=== PATIENT | female | born 1975 | race Asian ===

== ENCOUNTER 2017-04-30 19:26 | Emergency (ER) | payer BC ==
[~2017-04-30] VITALS: Ht 162.6 cm; Wt 61.2 kg
[2017-04-30] MEDS ORDERED: ONDANSETRON PF 4 MG/2 ML VIAL. ONE (19:56)
[2017-04-30] MEDS ORDERED: IV NORMAL SALINE 1000ML BAG 1,000 ML IV SCH (20:06)
[2017-04-30] MEDS ORDERED: fentaNYL PF VIAL 100 MCG/2 ML VIAL ONE (20:09)
[2017-04-30] MEDS ORDERED: ONDANSETRON PF 4 MG/2 ML VIAL. IV ONE ×2 (20:15)
[2017-04-30] MEDS ORDERED: fentaNYL PF VIAL 100 MCG/2 ML VIAL IV PRN (20:15)
[2017-04-30 20:18] LABS: BILIRUBIN,URINE NEGATIVE (NEG); GLUCOSE,URINE NEGATIVE (NEG); NITRITE,URINE NEGATIVE (NEG); PROTEIN,URINE NEGATIVE (NEG-TRACE); UROBILINOGEN,URINE 0.2 mg/dL (0.2 mg/dL)
[2017-04-30 20:21] LABS: BASO % 1 % (0-3); EOS % 1 % (0-3); HEMATOCRIT 38.3 % (36.0-47.0); HEMOGLOBIN 13.3 g/dL (12.0-15.5); LYMPH % 35 % (24-48); MEAN CORPUSCULAR HEMOGLOBIN 31 pg (25-35); MEAN CORPUSCULAR HGB CONC 35 g/dL (31-37); MEAN CORPUSCULAR VOLUME 89 fL (79-100); MONO % 7 % (0-9); NEUT % 56 % (31-73); PLATELET COUNT 221 x10^3/uL (140-400); RED BLOOD COUNT 4.28 x10^6/uL (3.50-5.40); WHITE BLOOD COUNT 5.8 x10^3/uL (4.0-11.0)
[2017-04-30 20:24] LABS: BACTERIA,URINE MODERATE /HPF (0-FEW); RBC,URINE TNTC /HPF (0-2); SQUAMOUS EPITHELIAL CELL,UR MOD /LPF; WBC,URINE OCC /HPF (0-4)
[2017-04-30 20:37] LABS: CALCIUM 8.8 mg/dL (8.5-10.1); CREATININE 0.6 mg/dL (0.6-1.0); GFR 110.2; POTASSIUM 4.2 mmol/L (3.5-5.1)
[2017-04-30 20:45] LABS: ALBUMIN 3.8 g/dL (3.4-5.0); ALBUMIN/GLOBULIN RATIO 0.9 (1.0-1.7); TOTAL BILIRUBIN 0.9 mg/dL (0.2-1.0); TOTAL PROTEIN 7.9 g/dL (6.4-8.2)
[2017-04-30] MEDS ORDERED: fentaNYL PF VIAL 100 MCG/2 ML VIAL IV ONE (20:45)
--- NOTE | 2017-04-30 20:46 | RAD ---
CT abdomen and pelvis without contrast Indication:rt flank pain. . Technique: Contiguous axial images are obtained through the abdomen and pelvis. No intravenous or oral contrast per request. Multiplanar reformatted images obtained. Exposure: One or more of the following individualized dose reduction techniques were utilized for this examination: 1. Automated exposure control 2. Adjustment of the mA and/or kV according to patient size 3. Use of iterative reconstruction technique. Comparison:None are available Findings: Urinary tracts: 4 mm calcification at the distal right ureter, just above the ureterovesical junction. There is mild right hydronephrosis compatible with mild obstruction. No evidence of intrarenal calculus. No left hydronephrosis. Evaluation of solid viscera, bowel and vasculature is compromised by the noncontrast technique. Lower thorax: Lung bases are clear. Pneumoperitoneum:No gross pneumoperitoneum. Liver: Unremarkable Spleen: Borderline enlarged at 12.5 cm. Pancreas: Difficult to distinguish from adjacent unopacified bowel but no obvious abnormality. Kidneys: No focal lesion. Adrenals:No evidence of mass. Gallbladder: No calcified stone Aorta: Abdominal aorta is nonaneurysmal Lymph nodes: No significant enlargement GI tract: No bowel obstruction. No paracolonic inflammation. Appendix:Visualized, and appears within normal limits. Ascites: No gross ascites. Urinary bladder: Not distended. No evidence of pelvic mass. Bones: No destructive process. IMPRESSION: 1. Mildly obstructive 4 mm calculus at the distal right ureter. 2. Borderline splenomegaly. Electronically signed by: Nish Zavala MD (04/30/2017 8:43 PM) [id number]
[2017-04-30 21:35] VITALS: BP 113/69
[2017-04-30] MEDS ORDERED: HYDR-971 PO (21:42)
[2017-04-30] MEDS ORDERED: TAMS0.4C97 PO (21:42)
--- NOTE | 2017-04-30 21:42 | PHYS DOC ---
Past Medical History Past Medical History: Kidney Stone Past Surgical History: No Surgical History Alcohol Use: None Drug Use: None Adult General Chief Complaint Chief Complaint: ABDOMINAL PAIN HPI HPI Patient is a 41 year old female who presents with one to one and a half hours of severe pain in the right flank/right lower quadrant. She denies fever or chills. She's had a couple of episodes of vomiting. Denies diarrhea. She denies , she has not been sexually active. She has had pain similar to this once before when she passed a kidney stone. She denies previous abdominal surgery. Patient is allergic to sulfa. She has no chronic medical problems. Review of Systems Review of Systems Constitutional: Denies fever or chills [] GI: As in history of present illness : Denies dysuria or hematuria [] Current Medications Current Medications Current Medications Medications (Trade) Dose Ordered Sig/Avinash Start Time Stop Time Status Last Admin Dose Admin Fentanyl Citrate (Fentanyl 2ml Vial) 100 mcg 1X ONCE 04/30/17 20:45 04/30/17 20:46 DC 04/30/17 20:14 100 MCG Ketorolac Tromethamine (Toradol) 30 mg 1X ONCE 04/30/17 21:45 04/30/17 21:46 DC 04/30/17 21:55 30 MG Ondansetron HCl (Zofran) 4 mg 1X ONCE 04/30/17 20:15 04/30/17 20:16 DC Sodium Chloride 1,000 ml @ 1,000 mls/hr Q1H 04/30/17 20:06 04/30/17 21:05 DC 04/30/17 20:17 1,000 MLS/HR Tamsulosin HCl (Flomax) 0.4 mg 1X ONCE 04/30/17 21:45 04/30/17 21:46 DC 04/30/17 21:54 0.4 MG Allergies Allergies Allergies Coded Allergies Type Severity Reaction Last Updated Verified Sulfa (Sulfonamide Antibiotics) Allergy Intermediate 04/30/17 Yes Physical Exam Physical Exam Constitutional: Well developed, well nourished, writhing in pain, appears colicky, alert and appropriate HENT: Normocephalic, atraumatic, bilateral external ears normal, nose normal. [ ] Eyes: conjunctiva normal, no discharge. [] Neck: Normal range of motion, no stridor. [] Abdomen: Bowel sounds normal, soft, no tenderness, no masses, no pulsatile masses. Patient has pain in the right mid abdomen but that area is not particularly tender, no rebound or guarding. Skin: Warm, dry, no erythema, no rash. [] Extremities: No tenderness, no cyanosis, no clubbing, ROM intact, no edema. [] Neurologic: Alert and oriented X 3, normal motor function, normal sensory function, no focal deficits noted. [] Current Patient Data Vital Signs Vital Signs Date Time Temp Pulse Resp B/P (MAP) Pulse Ox O2 Delivery O2 Flow Rate FiO2 04/30/17 21:35 68 13 113/69 (84) 100 Room Air 04/30/17 19:53 98.4 98.4 Lab Values Laboratory Tests Test 04/30/17 19:16 04/30/17 19:59 04/30/17 20:00 POC Urine HCG, Qualitative Hcg negative (Negative) Urine Collection Type Unknown Urine Color Yellow Urine Clarity Cloudy Urine pH 6.0 Urine Specific Pep 1.025 Urine Protein Negative mg/dL (NEG-TRACE) Urine Glucose (UA) Negative mg/dL (NEG) Urine Ketones (Stick) Negative mg/dL (NEG) Urine Blood Large (NEG) Urine Nitrite Negative (NEG) Urine Bilirubin Negative (NEG) Urine Urobilinogen Dipstick 0.2 mg/dL (0.2 mg/dL) Urine Leukocyte Esterase Trace (NEG) Urine RBC Tntc /HPF (0-2) Urine WBC Occ /HPF (0-4) Urine Squamous Epithelial Cells Mod /LPF Urine Bacteria Moderate /HPF (0-FEW) Urine Mucus Mod /LPF White Blood Count 5.8 x10^3/uL (4.0-11.0) Red Blood Count 4.28 x10^6/uL (3.50-5.40) Hemoglobin 13.3 g/dL (12.0-15.5) Hematocrit 38.3 % (36.0-47.0) Mean Corpuscular Volume 89 fL (79-100) Mean Corpuscular Hemoglobin 31 pg (25-35) Mean Corpuscular Hemoglobin Concent 35 g/dL (31-37) Red Cell Distribution Width 13.0 % (11.5-14.5) Platelet Count 221 x10^3/uL (140-400) Neutrophils (%) (Auto) 56 % (31-73) Lymphocytes (%) (Auto) 35 % (24-48) Monocytes (%) (Auto) 7 % (0-9) Eosinophils (%) (Auto) 1 % (0-3) Basophils (%) (Auto) 1 % (0-3) Neutrophils # (Auto) 3.2 x10^3uL (1.8-7.7) Lymphocytes # (Auto) 2.0 x10^3/uL (1.0-4.8) Monocytes # (Auto) 0.4 x10^3/uL (0.0-1.1) Eosinophils # (Auto) 0.1 x10^3/uL (0.0-0.7) Basophils # (Auto) 0.0 x10^3/uL (0.0-0.2) Sodium Level 139 mmol/L (136-145) Potassium Level 4.2 mmol/L (3.5-5.1) Chloride Level 104 mmol/L (98-107) Carbon Dioxide Level 24 mmol/L (21-32) Anion Gap 11 (6-14) Blood Urea Nitrogen 16 mg/dL (7-20) Creatinine 0.6 mg/dL (0.6-1.0) Estimated GFR (Cockcroft-Gault) 110.2 BUN/Creatinine Ratio 27 (6-20) H Glucose Level 130 mg/dL (70-99) H Calcium Level 8.8 mg/dL (8.5-10.1) Total Bilirubin 0.9 mg/dL (0.2-1.0) Aspartate Amino Transferase (AST) 29 U/L (15-37) Alanine Aminotransferase (ALT) 26 U/L (14-59) Alkaline Phosphatase 81 U/L (46-116) Total Protein 7.9 g/dL (6.4-8.2) Albumin 3.8 g/dL (3.4-5.0) Albumin/Globulin Ratio 0.9 (1.0-1.7) L Lipase 128 U/L (73-393) Laboratory Tests 04/30/17 20:00 Laboratory Tests 04/30/17 20:00 EKG EKG [] Radiology/Procedures Radiology/Procedures CT scan of the abdomen and pelvis read by the radiologist. Mildly obstructive 4 mm calculus at the distal right ureter.[] Course & Med Decision Making Course & Med Decision Making Pertinent Labs and Imaging studies reviewed. (See chart for details) 41-year-old female presents with 1-1-1/2 hours of severe colicky pain in the distribution suggestive of a right-sided ureteral stone. Patient was treated with IV fluids, IV pain and nausea medications. Labs unremarkable. CT scan does confirm a right distal ureter stone. The patient was significantly improved after ED treatment. She was discharged with a urine strainer. See instructions for plan. [] Dragon Disclaimer Dragon Disclaimer This electronic medical record was generated, in whole or in part, using a voice recognition dictation system. Departure Departure Impression: Primary Impression: Ureteral stone Additional Impression: Ureteral colic Disposition: HOME, SELF-CARE Condition: IMPROVED Referrals: NO PCP (PCP) Patient Instructions: Kidney Stones, [id number] Additional Instructions: You have a 4 mm stone in your right ureter, almost to pass into the bladder. Drink plenty of fluids. Take ibuprofen 800 mg every 6-8 hours around the clock for 2-3 days or until your stone passes. Take Flomax once daily until the stone passes. Strain urine so that you can tell when it does pass. If needed for more severe pain, hydrocodone as prescribed. You may combine ibuprofen, Flomax, and hydrocodone if needed. Scripts Hydrocodone/Apap 5-325 (NORCO 5-325 TABLET) 1 Each Tablet 1-2 TAB PO Q4-6HRS for dental pain, #10 TAB Prov: SUSAN GROVER MD 04/30/17 Tamsulosin Hcl (FLOMAX) 0.4 Mg Cap.er.24h 1 CAP PO DAILY for kidney stone pain, #14 CAP 11 Refills Take once every 24 hours until your kidney stone passes Prov: SUSAN GROVER MD 04/30/17 Problem Qualifiers SUSAN GROVER MD Apr 30, 2017 21:42
[2017-04-30] MEDS ORDERED: KETOROLAC 30 MG/ML INJ. IV ONE (21:45)
[2017-04-30] MEDS ORDERED: TAMSULOSIN 0.4 MG CAP.ER.24H. PO ONE (21:45)
== END 2017-04-30 22:11 | disposition home or self-care (01) ==
LOC: ER 19:26
DX: N20.1 Calculus of ureter (principal); Z88.2 Allergy status to sulfonamides; Z87.442 Personal history of urinary calculi
CPT/HCPCS: 36415; 74176; 80053; 81001; 81025; 83690; 85025; 87086; 96361; 96374; 96375; 99285; J1885; J2405; J3010; J7030